=== PATIENT | male | born 1970 | race Two or more races ===

== ENCOUNTER 2023-08-04 07:12 | Day surgery (SDC) | payer OTHER ==
[2023-08-03 08:23] LABS: BASOPHILS # (AUTO) 0.1 X10'3 (0-0.2); BASOPHILS % (AUTO) 0.8 % (0-1); EOSINOPHILS # (AUTO) 0.3 X10'3 (0-0.9); EOSINOPHILS % (AUTO) 3.5 % (0-6); HEMATOCRIT 45.7 % (42.0-52.0); HEMOGLOBIN 15.4 g/dl (14.0-17.9); LYMPHOCYTES # (AUTO) 1.2 X10'3 (1.1-4.8); LYMPHOCYTES % (AUTO) 15.2 % (21-51); MEAN CORPUSCULAR HEMOGLOBIN 31.5 PG (27.0-31.0); MEAN CORPUSCULAR HGB CONC 33.6 g/dL (33.0-36.5); MEAN CORPUSCULAR VOLUME 93.8 FL (78-98); MEAN PLATELET VOLUME 8.1 FL (7.4-10.4); MONOCYTES # (AUTO) 0.8 X10'3 (0-0.9); MONOCYTES % (AUTO) 10.3 % (2-12); NEUTROPHILS # (AUTO) 5.4 X10'3 (1.8-7.7); NEUTROPHILS % (AUTO) 70.2 % (42-75); PLATELET COUNT 264 X10'3 (140-440); RED BLOOD COUNT 4.87 X10'6 (4.70-6.10); RED CELL DISTRIBUTION WIDTH 13.2 % (11.5-14.5); WHITE BLOOD COUNT 7.7 X10'3 (4.5-11.0)
[2023-08-03 08:30] LABS: PROTHROMBIN TIME 11.1 SECONDS (9.0-12.0)
[2023-08-03 08:52] LABS: ALBUMIN 3.5 G/DL (3.4-5.0); ANION GAP 8 (8-16); BLOOD UREA NITROGEN 17 MG/DL (7-18); BUN/CREATININE RATIO 23.3 (10.0-20.0); CALCIUM 8.5 MG/DL (8.5-10.1); CHLORIDE 105 MMOL/L (99-107); CREATININE 0.73 MG/DL (0.60-1.10); GLUCOSE 111 MG/DL (70-104); SODIUM 138 MMOL/L (135-145); TOTAL CARBON DIOXIDE 25.5 MMOL/L (24-32); eGFR > 90 ML/MIN
[~2023-08-04] VITALS: Ht 188 cm; Wt 145.4 kg
[2023-08-04] VITALS (13 sets, daily range): BP systolic 99–120; BP diastolic 55–80; PULSE 58–74; RESP 10–18; TEMP 98; O2SAT 93–98
[2023-08-04] MEDS ORDERED: SACU1TAB PO (07:31)
[2023-08-04] MEDS ORDERED: AMI200T PO (07:31)
[2023-08-04] MEDS ORDERED: DILT240C78 PO (07:31)
[2023-08-04] MEDS ORDERED: ATOR-2 PO (07:31)
[2023-08-04] MEDS ORDERED: CARV3.1244 PO (07:31)
[2023-08-04] MEDS ORDERED: APIX5TAB3 PO (07:31)
[2023-08-04] MEDS ORDERED: ASPI81TA52 PO (07:31)
[2023-08-04] MEDS ORDERED: atropine 0.1mg/ml 10ml syringe IV ONE (07:45)
[2023-08-04] MEDS ORDERED: normal saline 1000ml 1,000 ML IV SCH (07:45)
[2023-08-04] MEDS ORDERED: LORazepam 0.5 MG tablet PO ONE (07:45)
[2023-08-04] MEDS ORDERED: diphenhydrAMINE 25mg capsule PO ONE (07:45)
[2023-08-04] MEDS ORDERED: MIDAZolam 1mg/ml 10ml vial IV ONE (07:45)
[2023-08-04] MEDS ORDERED: amiodarone 150mg/dext, iso-os 100 ML IV ONE (07:45)
[2023-08-04] MEDS ORDERED: morphine 10mg/ml inj. IV ONE (07:45)
== END 2023-08-04 10:35 | disposition home or self-care (01) ==
LOC: SSTAY O 07:12
PROVIDERS: ATTEND Internal Medicine Cardiovascular Disease
DX: I48.92 Unspecified atrial flutter (principal); I11.0 Hypertensive heart disease with heart failure; I50.9 Heart failure, unspecified; I25.10 Atherosclerotic heart disease of native coronary artery without angina pectoris; E78.5 Hyperlipidemia, unspecified; E66.9 Obesity, unspecified; G47.33 Obstructive sleep apnea (adult) (pediatric); I25.2 Old myocardial infarction; M10.9 Gout, unspecified; I25.5 Ischemic cardiomyopathy; Z79.899 Other long term (current) drug therapy; Z95.5 Presence of coronary angioplasty implant and graft; Z98.890 Other specified postprocedural states; Z68.41 Body mass index [BMI] 40.0-44.9, adult; Z82.3 Family history of stroke; Z82.49 Family history of ischemic heart disease and other diseases of the circulatory system
CPT/HCPCS: 36415; 80048; 85025; 85610; 92960; 93005; 94760; J2250; J2274; J7030; 96360; A4620